=== PATIENT | female | born 1970 | race Caucasian/White ===

== ENCOUNTER 2016-09-18 21:38 | Observation (INO) | payer OTHER ==
[2016-09-18 22:02] LABS: BASO % 0.7 % (0-2); EOS % 4.8 % (0-7); HCT-HEMATOCRIT 44.6 % (34.0-49.0); HGB-HEMOGLOBIN 15.3 gm/dl (12.0-15.5); IMMATURE GRANULOCYTES ABSOLUTE 0.02 tho/cmm (0-0.03); IMMATURE GRANULOCYTES PERCENT 0.2 % (0-0.3); LYMPH % 49.3 % (20-45); MCH (MEAN CORPUSCULAR HGB) 30.7 pg (28.0-32.0); MCHC MEAN CORPUSCULAR HGB CONC 34.3 % (32.0-36.0); MCV (MEAN CELL VOLUME) 89.4 fl (82.0-96.0); MEAN PLATELET VOLUME 10.2 cmc (9.4-12.4); MONO % 7.7 % (0-12); NEUTROPHIL ABSOLUTE COUNT 3.8 tho/cmm (1.6-8.0); NEUTROPHIL-AUTOMATED 3.8 tho/cmm (1.6-8.0); NEUTROPHILS % 37.3 % (40-80); PLATELET COUNT 314 tho/cmm (150-450); RED BLOOD COUNT 4.99 mil/cmm (4.00-5.20); RED CELL DISTRIBUTION WIDTH 14.4 % (12.4-16.4)
[2016-09-18] MEDS ORDERED: ASPIRIN EC81 MG PO (22:03)
[2016-09-18] MEDS ORDERED: PLAVIX75 M1 PO (22:03)
[2016-09-18] MEDS ORDERED: LIPITOR80 M1 PO (22:03)
[2016-09-18] MEDS ORDERED: CARTIA XT240 M1 PO (22:04)
[2016-09-18] MEDS ORDERED: METOPROLOL TART25 M1 PO (22:04)
[2016-09-18] MEDS ORDERED: NITROSTAT0.4 M1 (22:06)
[2016-09-18 22:11] LABS: BASO ABSOLUTE COUNT 0.1 tho/cmm (0.0-0.2); EOSINOPHIL ABSOLUTE COUNT 0.5 tho/cmm (0.0-0.7); MONOCYTE ABSOLUTE COUNT 0.8 tho/cmm (0.0-1.2)
[2016-09-18 22:18] LABS: ANION GAP 11 mmol/L (0-20); BLOOD UREA NITROGEN 8 mg/dl (6-24); CALCIUM 9.1 mg/dl (8.5-10.5); CARBON DIOXIDE-VENOUS 26 mmol/L (22-32); CHLORIDE 111 mmol/l (96-110); CREATININE 0.65 mg/dl (0.50-1.10); GLUCOSE 92 mg/dL (70-110); MAGNESIUM 2.1 mg/dl (1.8-2.6); POTASSIUM 3.8 mmol/L (3.7-5.1); SODIUM 144 mmol/L (135-145); eGFR VALUE FOR BLACK >90 mL/Min
[2016-09-19] MEDS ORDERED: RANEXA500 M1 PO (10:23)
== END 2016-09-19 10:50 ==
LOC: EDMED 21:38 → EMR2 23:39 → PCUA 09-19 00:24
PROVIDERS: Emergency Medicine; Nurse Practitioner Family; ADMIT Internal Medicine Cardiovascular Disease
DX: R07.9 Chest pain, unspecified (principal); I25.10 Atherosclerotic heart disease of native coronary artery without angina pectoris; F17.210 Nicotine dependence, cigarettes, uncomplicated; Z79.02 Long term (current) use of antithrombotics/antiplatelets; Z79.82 Long term (current) use of aspirin; Z79.899 Other long term (current) drug therapy; Z88.5 Allergy status to narcotic agent; Z82.49 Family history of ischemic heart disease and other diseases of the circulatory system; Z90.49 Acquired absence of other specified parts of digestive tract; Z98.890 Other specified postprocedural states
CPT/HCPCS: G0378; J7030